=== PATIENT | male | born 1985 | race Two or more races ===

== ENCOUNTER 2017-05-08 17:56 | Emergency (ER) | payer OTHER, SELFPAY ==
[2017-05-08 19:10] VITALS: BP 123/77; PULSE 78; RESP 18; TEMP 36.6; O2SAT 98; BMI 25.8
--- NOTE | 2017-05-08 19:21 | HMH.EDUTC ---
[facility] [place] Disposition Clinical Impression: Rash and nonspecific skin eruption Disposition: Home, Self-Care Condition on Discharge: Good Instructions: DI for Rash Prescriptions: methylPREDNISolone [Medrol] 4 mg PO DAILY 6 Days #21 tab.ds.pk Cetirizine HCl [Zyrtec] 10 mg PO DAILY 30 Days #30 tab Time of Disposition: 19:31 Medical Decision Making - Souleymane Inquiry Pt receiving controlled substance: No Vital Signs: 05/08/17 19:10 Temperature 97.9 F Temperature Source Oral Pulse Rate [Right Radial] 78 Respiratory Rate 18 Blood Pressure [Right Arm] 123/77 Blood Pressure Mean [Right Arm] 92 Blood Pressure Source [Right Arm] Automatic Cuff Blood Pressure Position [Right Arm] Sitting 02 Sat by Pulse Oximetry 98 Oxygen Delivery Method Room Air [facility] [place] HPI - General Stated complaint: rash Time Seen by Provider: 05/08/17 19:24 Mode of Arrival: Family Vehicle Source of Information: Patient Limitations: Language Barrier Description of Symptoms (Recalled from Triage Doc. by RN): PT STATES HE HAS RED BLOTCHES ON HIS FACE AND ARMS THAT STARTED 3 DAYS AGO. HEENT Symptoms (Recalled from RN notes): No Resp Symptoms (Recalled from RN notes): No Skin Symptoms (Recalled from RN notes): Yes (RED BLOTCHES ON FACE AND ARM) MS Symptoms (Recalled from RN notes): No Functional Status (Recalled from RN notes): NA - History of Present Illness Provider Complaint: Rash on bilateral arms and anterior neck that started 3 days ago. Limited by language barrier but no new exposures. Itchy but not painful. Onset (ago): day(s) (3) Location: neck, left, right, upper extremity Associated symptoms: rash Treatments prior to arrival: none - Related Data Previous Rx's Medication Instructions Recorded Cetirizine HCl [Zyrtec] 10 mg PO DAILY 30 Days #30 tab 05/08/17 methylPREDNISolone [Medrol] 4 mg PO DAILY 6 Days #21 tab.ds.pk 05/08/17 Allergies Allergy/AdvReac Type Severity Reaction Status Date / Time No Known Allergies Allergy Verified 05/08/17 19:16 - Worker's Comp Is this a Worker's Comp case?: No [facility] History I have reviewed the patient's past medical history: Yes Medical History: Denies:: Cancer, Diabetes Mellitus Type 1, Diabetes Mellitus Type 2, MRSA Amputation: No Fractures: No - Social History Smoking Status: Never smoker Alcohol Intake: never - Psychiatric History Expresses thoughts of harming self/others: None Suicide Plan Description: No Plan ROS Obtained: Yes All systems reviewed & no additional complaints - Integumentary/Breasts Skin/Breast: Reports itching, Reports rash - Allergic/Immunologic Allergic/Immunologic: Reports hives Physical Exam - General General appearance: alert, in no apparent distress - Head Head exam: atraumatic - Eye Eye exam: Present: normal appearance, PERRL - ENT ENT exam: Present: normal exam - Neck Neck exam: Present: normal inspection - Respiratory Respiratory exam: Present: normal lung sounds bilaterally - Cardiovascular Cardiovascular exam: Present: regular rate, normal rhythm - Extremities Exam Extremities exam: Present: full ROM - Neurological Exam Neurological exam: Present: alert, oriented X3 - Skin Skin exam: Present: rash - Expanded Skin Exam Type of lesion: Present: rash Distribution: LUE, RUE Description: Present: erythematous, macular, papular
--- NOTE | 2017-05-08 19:24 | ED_ITS ---
[facility] [place] Disposition Clinical Impression: Rash and nonspecific skin eruption Disposition: Home, Self-Care Condition on Discharge: Good Instructions: DI for Rash Prescriptions: methylPREDNISolone [Medrol] 4 mg PO DAILY 6 Days #21 tab.ds.pk Cetirizine HCl [Zyrtec] 10 mg PO DAILY 30 Days #30 tab Time of Disposition: 19:31 Medical Decision Making - Souleymane Inquiry Pt receiving controlled substance: No Vital Signs: 05/08/17 19:10 Temperature 97.9 F Temperature Source Oral Pulse Rate [Right Radial] 78 Respiratory Rate 18 Blood Pressure [Right Arm] 123/77 Blood Pressure Mean [Right Arm] 92 Blood Pressure Source [Right Arm] Automatic Cuff Blood Pressure Position [Right Arm] Sitting 02 Sat by Pulse Oximetry 98 Oxygen Delivery Method Room Air [facility] [place] HPI - General Stated complaint: rash Time Seen by Provider: 05/08/17 19:24 Mode of Arrival: Family Vehicle Source of Information: Patient Limitations: Language Barrier Description of Symptoms (Recalled from Triage Doc. by RN): PT STATES HE HAS RED BLOTCHES ON HIS FACE AND ARMS THAT STARTED 3 DAYS AGO. HEENT Symptoms (Recalled from RN notes): No Resp Symptoms (Recalled from RN notes): No Skin Symptoms (Recalled from RN notes): Yes (RED BLOTCHES ON FACE AND ARM) MS Symptoms (Recalled from RN notes): No Functional Status (Recalled from RN notes): NA - History of Present Illness Provider Complaint: Rash on bilateral arms and anterior neck that started 3 days ago. Limited by language barrier but no new exposures. Itchy but not painful. Onset (ago): day(s) (3) Location: neck, left, right, upper extremity Associated symptoms: rash Treatments prior to arrival: none - Related Data Previous Rx's Medication Instructions Recorded Cetirizine HCl [Zyrtec] 10 mg PO DAILY 30 Days #30 tab 05/08/17 methylPREDNISolone [Medrol] 4 mg PO DAILY 6 Days #21 tab.ds.pk 05/08/17 Allergies Allergy/AdvReac Type Severity Reaction Status Date / Time No Known Allergies Allergy Verified 05/08/17 19:16 - Worker's Comp Is this a Worker's Comp case?: No [facility] History I have reviewed the patient's past medical history: Yes Medical History: Denies:: Cancer, Diabetes Mellitus Type 1, Diabetes Mellitus Type 2, MRSA Amputation: No Fractures: No - Social History Smoking Status: Never smoker Alcohol Intake: never - Psychiatric History Expresses thoughts of harming self/others: None Suicide Plan Description: No Plan ROS Obtained: Yes All systems reviewed & no additional complaints - Integumentary/Breasts Skin/Breast: Reports itching, Reports rash - Allergic/Immunologic Allergic/Immunologic: Reports hives Physical Exam - General General appearance: alert, in no apparent distress - Head Head exam: atraumatic - Eye Eye exam: Present: normal appearance, PERRL - ENT ENT exam: Present: normal exam - Neck Neck exam: Present: normal inspection - Respiratory Respiratory exam: Present: normal lung sounds bilaterally - Cardiovascular Cardiovascular exam: Present: regular rate, normal rhythm - Extremities Exam Extremities exam: Present: full ROM - Neurological Exam Neurological exam: Present: alert, oriented X3 - Skin Skin exam: Present: rash - Expanded Skin Exam Type of lesion: Present: bertrand
[2017-05-08 19:35] VITALS: BP 118/73; PULSE 81; RESP 20; TEMP 36.8; O2SAT 99
== END 2017-05-08 19:37 | disposition home or self-care (01) ==
PROVIDERS: Emergency Provider Physician Assistant
DX: R21 Rash and other nonspecific skin eruption (principal)
CPT/HCPCS: 99201